=== PATIENT | female | born 1945 | race Two or more races ===

== ENCOUNTER → 2019-02-23 | Outpatient (CLI) | payer OTHER ==
[~2019-02-23] MED LIST: AMLO5TAB9 PO; CALC600T12 PO; LEVO75 PO; NEOM1OIN8 TP; PROP20TA18 PO; VITAD400 PO
[2019-02-23 10:44] VITALS: BP 151/90
== END | disposition home or self-care (01) ==
LOC: HBOWC 09:46
PROVIDERS: ATTEND Emergency Medicine
DX: S91.001A Unspecified open wound, right ankle, initial encounter (principal); I10 Essential (primary) hypertension; E03.9 Hypothyroidism, unspecified; X58.XXXA Exposure to other specified factors, initial encounter; Y93.89 Activity, other specified; Y92.89 Other specified places as the place of occurrence of the external cause; Y99.8 Other external cause status